=== PATIENT | female | born 2000 | race African-American/Black ===

== ENCOUNTER 2020-01-04 00:31 | Emergency (ER) | payer OTHER ==
[~2020-01-04] VITALS: Ht 160 cm; Wt 99.8 kg
[2020-01-04 02:39] VITALS: BP 145/82
== END 2020-01-04 02:46 | disposition home or self-care (01) ==
LOC: ER 00:31
DX: S01.112A Laceration without foreign body of left eyelid and periocular area, initial encounter (principal); Z90.89 Acquired absence of other organs; W22.8XXA Striking against or struck by other objects, initial encounter; Y93.89 Activity, other specified; Y92.89 Other specified places as the place of occurrence of the external cause; Y99.8 Other external cause status